=== PATIENT | male | born 1965 ===

== ENCOUNTER 2021-03-05 23:36 | Emergency (ER) | payer OTHER ==
[2021-03-06 01:14] VITALS: BP 156/90; PULSE 82; RESP 16; TEMP 97.6
--- NOTE | 2021-03-06 01:34 | ED ---
General Adult HPI - General Chief complaint: Recheck/Abnormal Lab/Rx Stated complaint: Covid Test Source: patient Mode of arrival: ambulatory Limitations: no limitations - History of Present Illness Initial comments: Patient here for covid test, refused medical examination - Related Data Allergies Allergy/AdvReac Type Severity Reaction Status Date / Time No Known Allergies Allergy Verified 03/05/21 23:41 Review of Systems ROS Statement: Those systems with pertinent positive or pertinent negative responses have been documented in the HPI. ROS Other: All systems not noted in ROS Statement are negative. Past Medical History Past Medical History: No Reported History History of Any Multi-Drug Resistant Organisms: None Reported Past Surgical History: No Surgical Hx Reported Past Psychological History: No Psychological Hx Reported Smoking Status: Vaper Past Alcohol Use History: None Reported Past Drug Use History: None Reported General Exam Limitations: no limitations Course Vital Signs 03/05/21 03/06/21 23:39 01:13 Temperature 97.8 F 97.6 F Pulse Rate 90 82 Respiratory 18 16 Rate Blood Pressure 179/99 156/90 O2 Sat by Pulse 99 99 Oximetry Medical Decision Making - Lab Data Lab Results 03/05/21 Range/Units 23:49 Coronavirus (PCR) Not Detected (Not Detectd) Disposition Clinical Impression: Lab test negative for COVID-19 virus Disposition: HOME SELF-CARE Is patient prescribed a controlled substance at d/c from ED?: No Referrals: None,Stated [Primary Care Provider] - 1-2 days Time of Disposition: 01:34
== END 2021-03-06 01:43 | disposition home or self-care (01) ==
LOC: EC 23:36
DX: F17.290 Nicotine dependence, other tobacco product, uncomplicated (principal); Z20.822 Contact with and (suspected) exposure to COVID-19
CPT/HCPCS: 87635; 99282